=== PATIENT | male | born 1985 | race African-American/Black ===

== ENCOUNTER 2017-05-23 09:58 | Emergency (ER) | payer OTHER ==
[~2017-05-23] VITALS: Ht 180.3 cm; Wt 81.8 kg
[2017-05-23] MEDS ORDERED: BENZONATATE 100 MG CAPSULE PO ONE (12:15)
[2017-05-23 12:53] VITALS: BP 131/87
== END 2017-05-23 12:54 | disposition home or self-care (01) ==
LOC: EMS 10:02
DX: J02.8 Acute pharyngitis due to other specified organisms (principal); R51 Headache; F12.90 Cannabis use, unspecified, uncomplicated
CPT/HCPCS: 99283

== ENCOUNTER 2017-08-16 22:00 | Emergency (ER) | payer OTHER ==
[~2017-08-16] VITALS: Ht 172.7 cm; Wt 75.0 kg
[2017-08-16] MEDS ORDERED: BACITRACIN 0.9 GM PACKET OINTMENT TP ONE (22:30)
[2017-08-16] MEDS ORDERED: IBUPROFEN 800 MG TABLET PO ONE (22:30)
[2017-08-16 22:34] VITALS: BP 121/79
[2017-08-16] MEDS ORDERED: PERTUSS(ACELL),DIPH,TET VAC/PF 0.5 ML VIAL IM ONE (22:45)
== END 2017-08-16 23:00 | disposition home or self-care (01) ==
LOC: EMS 22:01
DX: S61.211A Laceration without foreign body of left index finger without damage to nail, initial encounter (principal); F12.10 Cannabis abuse, uncomplicated; W26.8XXA Contact with other sharp object(s), not elsewhere classified, initial encounter; Y93.89 Activity, other specified; Y92.89 Other specified places as the place of occurrence of the external cause; Y99.8 Other external cause status
CPT/HCPCS: 90471; 90715; 99283